=== PATIENT | female | born 1955 | race Caucasian/White ===

== ENCOUNTER → 2016-12-14 | Outpatient (CLI) | payer MEDICARE, OTHER ==
[~2016-12-14] MED LIST: ALPR1TAB2 PO; HYDR-2868 PO; HYDR-965 PO; LORA2TAB89 PO; MELA1TAB6 PO; MELO7.5T5 PO; METH-38 PO; METH10TA2 PO; PROM25AM6 IJ; VALR1TAB PO; ZOLP10TA PO
--- NOTE | 2016-12-14 14:55 | PAIN ---
DATE OF SERVICE: 12/14/2016 DIAGNOSES: 1. Migraine headaches. 2. Cervicalgia. 3. Myofascial pain. HISTORY OF PRESENT ILLNESS: The patient is a 61-year-old female who returns for followup status post medication management with both methadone and hydrocodone, also Robaxin for muscle relaxation. The patient also takes Demerol and Phenergan injection at her local hospital once a month through a Port-A-Cath that she has for significant migraine headaches. We have been coordinating that with her primary physician in her local area of [place], [place]. The patient reports she is otherwise doing fairly well, has a 2 on a scale of 10 with a headache and 8 on a scale of 10 in her low back as she has been increasing her activity recently with a constant pain that varies in intensity with activity, was about an 8 on a scale of 10. The patient reports her headaches are fairly well controlled. Again, she has headaches every day, but when they get significantly compounding and worse, she does present to the Emergency Department for the Port-A-Cath IV injection of Demerol and Phenergan. The patient reports no new motor or sensory deficits, no new bowel or bladder incontinence, or other complaints. The patient did have a urine drug screen obtained today and has had appropriate UDS screens to date and has appropriate K-TRACS reporting today as well. PHYSICAL EXAMINATION: VITAL SIGNS: The patient's blood pressure 171/104, pulse 103, respirations 20, and temperature 98.7 degrees Fahrenheit. Height is 5 feet 10 inches and weighs 256 pounds. GENERAL: The patient is awake, alert, oriented, appropriate, very pleasant demeanor. HEENT: Head shows normocephalic, atraumatic. Extraocular movements are intact, symmetrical. Oral cavity, mucous membranes moist and pink. Dentition is intact. NECK: Shows anterior throat supple without palpable lymphadenopathy noted. Swallow reflex is symmetrical. CHEST: Shows normal on inspection. Breath sounds are clear to auscultation bilaterally. HEART: Shows S1 and S2 clear. ABDOMEN: Obese, soft, nontender, nondistended. No palpable organomegaly is noted. No rebound or guarding demonstrated. BACK: Shows spine grossly in midline. Slight exaggeration of thoracic kyphosis and mild flattening of lumbar lordotic curvature. Lumbar paraspinous muscle shows some moderate tenderness with palpation, but only diffusely in the lumbar distribution, but is fairly tender bilaterally. No difficulty with rotation, right and left lateral 10 degrees and extension 10 degrees, forward flexion 45 degrees without significant pain reported. Options were discussed with the patient. The patient's old chart was reviewed as her current medication regimen and updated. Current review of systems is updated today as well. We will refill the patient's methadone and hydrocodone as well as Robaxin and note for her Demerol injections for her once monthly when headaches are severe enough. The patient again will have urinalysis obtained today and has again had appropriate UDS to date and had appropriate K-TRACS reporting to date. The patient was encouraged to increase her activity as tolerated and to do weight loss activities as well, which may help with her low back pain also. We discussed this in some detail with her and her son who accompanied her to visit today. She will look into some dietary help in her local region as well. The patient will follow up in approximately 90 days or sooner if necessary. She was given a 90-day prescription with instructions, side effects to be aware of with the medication as well. ANGELINE CLEMENT MD DR: JOSE F/keshia JOB#: [id number] / [id number]
== END | disposition home or self-care (01) ==
LOC: PNCL 12:47
PROVIDERS: ATTEND Anesthesiology
DX: G43.009 Migraine without aura, not intractable, without status migrainosus (principal); M54.2 Cervicalgia; M79.1 Myalgia
CPT/HCPCS: G0463

== ENCOUNTER → 2017-03-08 | Outpatient (CLI) | payer MEDICARE, OTHER ==
[~2017-03-08] MED LIST changes: +CHOL500016 PO
--- NOTE | 2017-03-08 16:09 | PAIN ---
DATE OF SERVICE: 03/08/2017 PROGRESS NOTE FOR PAIN CLINIC DIAGNOSES: 1. Migraine headaches. 2. Cervicalgia. 3. Myofascial pain. HISTORY OF PRESENT ILLNESS: The patient is a 61-year-old female who returns for followup status post medication management with both methadone and hydrocodone. The patient reports she has been doing very well with this. She also has intermittent Demerol shot once a month at a local hospital near her in [place], [place]. The patient reports she is doing very well with this. She is on a very stable regimen. She still some significant pain, but is fairly well controlled with medication regimen, still some pain in the base of the neck and the upper, middle and lower back, but the headaches have been somewhat better and well controlled with the current medication regimen and Demerol injections. The patient reports also pain in the base of the neck and shoulders as well as upper back pain, which is well controlled with oral medications as well. The patient reports no side effects to the medications and she has had increased activity lately. It has been warmer outside and she has been trying to be more active ____ her pain to a moderate extent. The patient reports her headache is a 10 on a scale of 10 and her least pain is 7 on a scale of 10 in the mid back and neck. The patient reports that the pain is tingling, burning, aching, sharp, shooting, constant and radiating pain in the base of the neck and shoulders as well as the upper extremities. We discussed interventional techniques with the patient, but she is adamantly against. She states she had these in the past without significant improvement. PHYSICAL EXAMINATION: VITAL SIGNS: Today, the patient's blood pressure is 125/96, pulse 81, respirations 20, temperature 98.7 degrees Fahrenheit, height is 5 feet 10 inches, weighs 265 pounds. GENERAL: The patient is awake, alert, oriented, appropriate, very pleasant demeanor. HEENT: Head shows normocephalic, atraumatic. Extraocular movements are intact, symmetrical. Oral cavity, mucous membranes are moist and pink. Dentition is intact. NECK: Shows anterior throat supple. CHEST: Shows normal on inspection. Breath sounds are clear to auscultation bilaterally. HEART: Shows S1 and S2 clear. No murmurs auscultated. ABDOMEN: Obese, soft, nontender, nondistended. No palpable organomegaly is noted. No rebound or guarding demonstrated. BACK: Shows spine grossly in the midline. Cervical paraspinous muscle shows some moderate tenderness to palpation, but only in the low cervical distribution without radiation, without atrophy, hypertrophy. The patient has full rotational motion of cervical spine, both laterally as well as extension and flexion without difficulty. BACK: Shows slight exaggerated thoracic kyphosis and mild flattening of lumbar lordotic curvature. Lumbar paraspinous muscle shows diffuse tenderness throughout the upper, middle and lower distribution of paraspinous muscles bilaterally without radiation. EXTREMITIES: The patient's extremities, upper extremity deep tendon reflexes are 2+, lower extremities are 1+. 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 Lower extremities show 4/5 with dorsiflexion, extension, but symmetrical, quadriceps and hamstring flexion are 4/5 and equal bilaterally as well. PLAN: Options were discussed with the patient and the patient's old chart was reviewed as her current medication regimen updated. Current review of systems updated today as well. We will refill the patient's methadone as well as hydrocodone with instructions, side effects to be aware of with the medications. The patient had appropriate K-TRACS reporting as well as appropriate urinalysis today. We also counseled the patient she has to increase activity as tolerated. We have discussed the interventional techniques for the cervical radiculopathy; however, the patient is adamantly against this. Once again, we will have her return to clinic in approximately 3 months. We will give her 90-day supply for medications with instructions, side effects to be aware of with each of these medications and she will follow up as scheduled. ANGELINE CLEMENT MD DR: JOSE F/keshia JOB#: [id number] / [id number]
== END | disposition home or self-care (01) ==
LOC: PNCL 11:35
PROVIDERS: ATTEND Anesthesiology
DX: G43.909 Migraine, unspecified, not intractable, without status migrainosus (principal); M54.2 Cervicalgia; M79.1 Myalgia
CPT/HCPCS: G0463

== ENCOUNTER → 2017-06-07 | Outpatient (CLI) | payer MEDICARE, OTHER ==
--- NOTE | 2017-06-07 15:09 | PAIN ---
DATE OF SERVICE: 06/07/2017 DATE OF SERVICE: 06/07/2017 DIAGNOSES: 1. Migraine headaches. 2. Cervicalgia. 3. Myofascial pain. HISTORY OF PRESENT ILLNESS: The patient is a 62-year-old female who returns for followup status post medication management with both methadone and hydrocodone for breakthrough pain. The patient reports she is doing very well on very stable regimen. No new motor or sensory deficits, recently had left knee surgery with arthroscopic surgery about 2 weeks ago and is doing well with this. The patient reports also that she needs surgery on her right leg and we asked her to call us prior to the surgery once it is scheduled in the next few months to cover her narcotic needs for postoperative pain issues. She does have a contract with our office. The patient agrees. The patient reports the pain now is mostly in the back and hips, but also in the upper back, neck and shoulders, also with some headaches, which are fairly well controlled. She continues to get Demerol injections once a month in her local hospital near [place], [place]. The patient reports the pain as 10 on a scale of 10 at its worst, it is an average of 10 over the last week and it is 7 on a scale of 10 today. The patient reports no new motor or sensory deficits, no new complaints or other findings. PAST MEDICAL HISTORY: Significant for hypertension, dizziness, arthritis, UTIs, kidney stones. PAST SURGICAL HISTORY: Include cholecystectomy, hysterectomy, x2, sinus surgeries, Port-A-Cath x2. CURRENT MEDICATIONS: Reviewed and updated in the patient's chart. REVIEW OF SYSTEMS: Reviewed and updated in the patient's chart, which are negative except for those items mentioned in history of present illness. PHYSICAL EXAMINATION: VITAL SIGNS: Today, the patient's blood pressure is 140/96, pulse 81, respirations 18, temperature 98.0 degrees Fahrenheit. Height is 5 feet 10 inches, weighs 263 pounds. GENERAL: The patient is awake, alert, oriented, appropriate, very pleasant demeanor. HEENT: Head shows normocephalic, atraumatic. Extraocular movements are intact, symmetrical. Patient wears eyeglasses. Oral cavity, mucous membranes are moist and pink. Dentition is intact. NECK: Shows anterior throat supple without palpable lymphadenopathy noted. Swallow reflex is symmetrical. CHEST: Shows normal on inspection. Breath sounds are clear to auscultation bilaterally. HEART: Shows S1 and S2 clear. No murmurs are auscultated. ABDOMEN: Obese, soft, nontender, nondistended. No palpable organomegaly is noted. No rebound or guarding demonstrated. BACK: The patient's back shows grossly midline spine with normal-appearing cervical lordotic curvature, thoracic kyphotic curvature, and lumbar lordotic curvature. No previous bruises, lesions, rashes or scars are noted. Cervical paraspinous musculature shows some tenderness to palpation, but only in the inferior aspect, but only moderate without atrophy, hypertrophy or radiation. The patient shows good rotational motion of cervical spine, both laterally as well as extension and flexion without significant pain reported. The patient's thoracic spine shows normal or slightly exaggerated thoracic kyphosis, mild flattening of lumbar lordotic curvature. Lumbar paraspinous musculature shows some mild tenderness throughout the upper, middle and lower distribution again diffusely without radiation ____ in to the low thoracic distribution as well, but without trigger points, asymmetry or radiation as well. The patient does show good rotational motion of lumbar spine, both laterally as well as extension and flexion without difficulty. EXTREMITIES: The patient's lower extremities show deep tendon reflexes at 1+ in the patellar and tendo calcaneus tendons. The patient is wearing a knee brace on the left side, soft knee brace wrap style. Upper extremities showed deep tendon reflexes 2+ in the biceps and triceps tendons. Motor exam is strong with transformation lead strength rated at 5/5 as is biceps and triceps flexion and symmetrical. Peripheral pulses are 2+ radial, 1+ posterior tibial bilaterally. No peripheral edema is noted. PLAN: Options were discussed with the patient and the patient's old chart was reviewed as her current medication list updated and review of systems updated as noted. We will refill the patient's methadone as well as hydrocodone with a 90-day supply. The patient is given instruction as well as side effects to be aware with medication. Also, we will have patient contact the office prior to her right-sided knee surgery, which is not scheduled yet within the next few months to cover postoperative pain for the patient as well. The patient was counseled as to activity levels as well as medication regimen. Hydration was stressed as well as diet and exercise discussed as much as her orthopedist will allow her with her recent knee surgery. The patient understands and agrees and will followup as scheduled. ANGELINE CLEMENT MD DR: JOSE F/keshia JOB#: [id number] / [id number]
== END | disposition home or self-care (01) ==
LOC: PNCL 10:16
PROVIDERS: ATTEND Anesthesiology
DX: G43.909 Migraine, unspecified, not intractable, without status migrainosus (principal); M54.2 Cervicalgia; I10 Essential (primary) hypertension; M79.1 Myalgia; Z87.442 Personal history of urinary calculi
CPT/HCPCS: G0463

== ENCOUNTER → 2017-08-30 | Outpatient (CLI) | payer MEDICARE, OTHER ==
--- NOTE | 2017-08-30 13:52 | PAIN ---
DATE OF SERVICE: 08/30/2017 DIAGNOSES: 1. Migraine headaches. 2. Cervicalgia. 3. Myofascial pain. HISTORY OF PRESENT ILLNESS: The patient is a 62-year-old female who returns for followup status post medication management with both methadone and hydrocodone as well as Robaxin for muscle relaxation. The patient has been on very stable regimen with good pain control and no side effects. The patient reports about 80% improvement overall of her pain, mostly in the neck and shoulders, upper mid back as well and some bilateral knee pain and some foot pain recently, history of headaches, may be a migraine headache history where she is obtaining intravenous access as she does have a Port-A-Cath of Dilaudid and Phenergan once a month on average at her local hospital, which is near [place], [place]. The patient reports she is doing very well with this, and the Dilaudid and Phenergan seemed to decrease the headache very significantly and actually has been working better than the Demerol she had been on before this IV. The patient reports no new motor or sensory deficits, no new bowel or bladder incontinence or other complaints, but still significant pain and migraines where she is taking injection about once a month at her local hospital with cooperation through her primary physician close to home. The patient reports the pain now is aching, sharp, shooting, stabbing, cramping, burning, tingling, constant, radiating, becoming more severe in the shoulders and upper neck, but very manageable with the medication. Without medication, the pain is about a 10, with it, is about a 4, on average about 8. Describes at least over the last week at about of 7 and is a 4 today. The patient reports no new motor or sensory deficits, no new changes. PHYSICAL EXAMINATION: VITAL SIGNS: Today, the patient's blood pressure is 155/93, pulse 85, respirations 18, temperature is 98.3 degrees Fahrenheit, height 5 feet 8 inches, weight is 255 pounds. GENERAL: The patient is awake, alert, oriented, appropriate, very pleasant demeanor. The patient is accompanied by her son. HEENT: Shows normocephalic, atraumatic. Eyes: Extraocular movements are intact and symmetrical. Oral cavity: Mucous membranes moist and pink. Dentition is intact. NECK: Shows anterior throat supple without palpable lymphadenopathy noted. Swallow reflex symmetrical. CHEST: Shows normal on inspection. Breath sounds clear to auscultation bilaterally. HEART: Shows S1, S2 clear. No murmurs auscultated. ABDOMEN: Soft, nontender, nondistended. No palpable organomegaly. No rebound or guarding demonstrated. BACK: The patient's back shows spine grossly in midline. Slight exaggeration of thoracic kyphosis, some minor flattening of lumbar lordotic curvature. No bruises, lesions, rashes or scars are noted. The patient has some moderate tenderness with palpation in the inferior aspect of the cervical paraspinous muscles into the superior medial and lateral trapezius, but is present bilaterally without radiation, without trigger points. The patient has good rotational motion of cervical spine, both laterally as well as extension and flexion without significant difficulty. The patient's low back shows moderate tenderness with palpation, but symmetrical on inspection with paraspinous musculature. The patient shows good rotational motion both laterally as well as extension and flexion without difficulty in the lumbar spine as well. EXTREMITIES: Show upper extremity deep tendon reflexes 2+ in the biceps and triceps tendons. Lower extremities show deep tendon reflexes 1+ in the patellar tendons and are equal bilaterally. 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 Lower extremities are approximately 4/5 dorsiflexion, extension, quadriceps and hamstrings, but are symmetrical and equal. Peripheral pulses are 2+ radial distribution and 1+ posterior tibia. No peripheral edema is noted in any of the extremities, upper or lower bilaterally. Options were discussed with the patient. The patient's old chart was reviewed. Her current medication regimen updated. Current review of systems updated today as well, and we will refill the patient's methadone as well as hydrocodone with instructions and side effects to be aware of. Also, Robaxin with instructions, side effects to be aware of discussed. The patient will have a new note for her local physician and ER for the Dilaudid, Phenergan once monthly injection on a p.r.n. basis for intractable migraine headache as she is responding quite well to this. The patient has had appropriate K-TRACS reporting as well as appropriate urinalysis to date. We will have urinalysis today as well as a routine screening. The patient will follow up in approximately 90 days', was given 90 day prescription with instructions once again with the medication and return to clinic sooner if necessary as well. ANGELINE CLEMENT MD DR: JOSE F/keshia JOB#: [id number] / [id number]
== END | disposition home or self-care (01) ==
LOC: PNCL 10:34
PROVIDERS: ATTEND Anesthesiology
DX: G43.909 Migraine, unspecified, not intractable, without status migrainosus (principal); M54.2 Cervicalgia; M79.1 Myalgia
CPT/HCPCS: G0463

== ENCOUNTER → 2017-11-22 | Outpatient (CLI) | payer MEDICARE, OTHER | END | disposition home or self-care (01) | LOC: PNCL 11:15 | DX: G43.909 Migraine, unspecified, not intractable, without status migrainosus (principal); M54.2 Cervicalgia | CPT/HCPCS: G0463 ==

== ENCOUNTER → 2018-02-14 | Outpatient (CLI) | payer MEDICARE, OTHER | END | disposition home or self-care (01) | LOC: PNCL 11:21 | DX: G43.809 Other migraine, not intractable, without status migrainosus (principal) | CPT/HCPCS: G0463 ==

== ENCOUNTER → 2018-05-09 | Outpatient (CLI) | payer MEDICARE, OTHER ==
[~2018-05-09] MED LIST changes: +HYDR-2766 PO
--- NOTE | 2018-05-09 17:24 | PAIN ---
DATE OF SERVICE: 05/09/2018 PROGRESS NOTE FOR PAIN CLINIC DIAGNOSES: 1. Migraine headaches. 2. Cervicalgia. 3. Myofascial pain. HISTORY OF PRESENT ILLNESS: The patient is a 63-year-old female who returns for followup status post medication management with both methadone and hydrocodone. The patient is also receiving intravenous through her Port-A-Cath, Dilaudid and Phenergan once a month at her local physician's facility in [place], [place]. The patient reports she is doing very well with her current regimen, has been under less stress lately and has had decreased pain, has been trying to decrease her pain medications as best she can, still doing well without side effects. The patient is taking up to 3-4 hydrocodone a day, sometimes only once or twice during the day when she has better days. The patient reports she is sleeping better at night, but does awaken her from sleep about every 6 hours with pain in the base of the neck and shoulders as well as the upper back, mid back, low back, pain in the knees, left shoulder, especially in both the elbows. The patient reports her pain is a 10 on a scale of 10 at worst, 9 on average, 6 at its least and is a 6 today. The patient reports it is tingling, cramping, aching, sharp, shooting, radiating, severe, constant at times, worse with activity, worse with positions or sitting for prolonged periods as well as standing for more than about 15-20 minutes or walking. The patient reports no new motor or sensory deficits. No side effects with the medication. PHYSICAL EXAMINATION: VITAL SIGNS: The patient's blood pressure is 138/95, pulse 85, respirations 16, temperature 98.4 degrees Fahrenheit, weight is 238 pounds. GENERAL: The patient is awake, alert, oriented, appropriate, very pleasant demeanor. The patient is accompanied by her son. HEENT: Shows normocephalic, atraumatic. Extraocular movements are intact and symmetrical. Oral cavity: Mucous membranes are moist and pink. Dentition is intact. NECK: Shows anterior throat supple without palpable lymphadenopathy noted. Swallow reflex is symmetrical. CHEST: Shows normal on inspection. Breath sounds are clear to auscultation bilaterally. HEART: Shows S1, S2 clear. No murmurs auscultated. ABDOMEN: Obese, soft, nontender, nondistended. No palpable organomegaly is noted. No rebound or guarding demonstrated. BACK: Shows spine grossly in the midline. Normal appearing cervical lordotic curvature, slight increase in thoracic kyphosis, some minor flattening of lumbar lordotic curvature. Cervical spine shows good rotational motion, both laterally greater than 45 degrees, close to 90 degrees, right and left as well as full extension, full forward flexion without significant pain reported. Paraspinous musculature shows some moderate tenderness in the inferior aspect of the cervical paraspinous muscles, but only diffusely into the superior medial trapezius bilaterally, but only diffuse without trigger points, without radiation. Thoracic spine shows some moderate tenderness diffusely throughout the upper, middle and lower distribution of the paraspinous muscles lumbar distribution as well with upper, middle and lower distribution of the paraspinous muscles, diffusely tender bilaterally without radiation. No tenderness over the spinous processes, sacrum or sacroiliac regions. The patient shows good rotation of the lumbar spine, both laterally greater than 10 degrees right and left as well as extension greater than 10 degrees, forward flexion 45 degrees without increase in pain. EXTREMITIES: The patient's lower extremities show deep tendon reflexes 1+ in the patellar and tendo-calcaneus tendons. Motor exam is strong with dorsiflexion, extension, quadriceps and hamstring flexion, equal and symmetrical at approximately 4 on a scale of 5 strength, but symmetrical. Peripheral pulses are 1+ posterior tibia. No peripheral edema is noted bilaterally. Options were discussed with the patient. The patient's old chart was reviewed as her current medication regimen updated. Current review of systems updated today as well. We will refill the patient's methadone and oxycodone as well as Robaxin for a 90-day treatment. The patient has had appropriate K-TRACS reporting as well as appropriate urinalysis to date. We will obtain urinalysis today as well as routine screening. The patient was given instructions as well as side effects to be aware of with each of her medications and follow up in approximately 90 days or sooner if necessary. ANGELINE CLEMENT MD DR: JOSE F/keshia JOB#: [id number] / [id number]
== END | disposition home or self-care (01) ==
LOC: PNCL 11:06
PROVIDERS: ATTEND Anesthesiology
DX: G43.909 Migraine, unspecified, not intractable, without status migrainosus (principal); M40.294 Other kyphosis, thoracic region; M43.8X2 Other specified deforming dorsopathies, cervical region; M43.8X6 Other specified deforming dorsopathies, lumbar region; M79.1 Myalgia; I10 Essential (primary) hypertension; Z90.710 Acquired absence of both cervix and uterus
CPT/HCPCS: G0463

== ENCOUNTER → 2018-08-01 | Outpatient (CLI) | payer MEDICARE, OTHER ==
--- NOTE | 2018-08-01 20:50 | PAIN ---
DATE OF SERVICE: 08/01/2018 PROGRESS NOTE FOR PAIN CLINIC DIAGNOSES: 1. Migraine headaches. 2. Cervicalgia. 3. Myofascial pain. HISTORY OF PRESENT ILLNESS: The patient is a 63-year-old female who returns for followup status post medication management, last seen 05/09/2018. The patient has been doing very well with her medication regimen of methadone and hydrocodone. The patient reports she is doing very well and feels that she is, "I am happy." The patient reports the headaches are about the same, but she is doing well. She is also getting injections of Phenergan and Dilaudid at her local hospital near [place], [place] once a month, which do help as well through her Port-A-Cath, which was placed. The patient reports she would like the Dilaudid amount decreased from 3 mg to 2 mg in the injectables. We will write the orders for that as well. She feels that it was too strong for her last time she had this. The patient reports otherwise doing well. She relates that she is recently engaged and plans to be next February 2019. She is feeling good about her situation at this time. The patient reports her pain is about a 9-10 on scale its worst, 9 on average, 7 at its least and is a 7 today, aching, sharp, shooting, burning, cramping, stabbing, radiating, severe in the mid back, upper back, in the bilateral lower extremities and legs, neck and shoulder as well as the headaches as described. The patient reports no new motor or sensory deficits, no side effects of the medication. The patient reports it wakes her from sleep about every 4-5 hours, but generally, she sleeps fairly well. The patient reports no other changes. PHYSICAL EXAMINATION: VITAL SIGNS: The patient's blood pressure is 160/100, pulse 109, pulse 88, respirations 16, temperature 98.4 degrees Fahrenheit. Height is 5 feet 10 inches, weight is 234 pounds. GENERAL: The patient is awake, alert, oriented, appropriate, very pleasant demeanor. HEENT: Head is normocephalic, atraumatic. Extraocular movements intact and symmetrical. Oral cavity: Mucous membranes are moist and pink. Dentition is intact. NECK: Shows anterior throat supple without palpable lymphadenopathy noted. Swallow reflex symmetrical. CHEST: Shows normal with inspection. Breath sounds are clear to auscultation bilaterally. HEART: Shows S1, S2 clear. No murmurs auscultated. ABDOMEN: Soft, nontender, nondistended. No palpable organomegaly is noted. No rebound or guarding demonstrated. BACK: Shows spine grossly in the midline. Cervical paraspinous muscle shows symmetrical, but with palpation shows some moderate tenderness in the inferior aspect of the cervical paraspinous muscles without specific trigger points, without radiation. The patient has good rotational motion of the cervical spine both laterally as well as extension and flexion without significant pain reported. Thoracic paraspinous muscle shows thoracic kyphosis slightly increased, however, normal. Paraspinous muscles are moderately tender with palpation, but only diffusely. Lumbar paraspinous muscle shows again moderately tender with palpation, but symmetrical without atrophy, hypertrophy or radiation of pain. The patient has good rotational motion both laterally as well as extension and flexion without difficulty. No tenderness over the sacrum or sacroiliac regions over the spinous processes. EXTREMITIES: The patient's extremities show upper extremity deep tendon reflexes at 2+, lower extremities are 1+. Motor exam is strong with professional application designer strength rated 5/5 dorsiflexion, extension is 5/5 and equal as well. Peripheral pulses are 2+ radial, 1+ posterior tibial. No peripheral edema is noted in the upper or lower extremities. Options were discussed with the patient. The patient's old chart was reviewed, as her current medication regimen updated. Current review of systems updated today as well. We will refill the patient's methadone as well as hydrocodone for a 3-month period. The patient has had appropriate K-TRACS reporting as well as appropriate urinalysis to date. We will give her 30-day supply with instructions, side effects to be aware of with each of the medications. Also, we will change the standing order for her injectable medication to decrease the Dilaudid from 3 mg to 2 mg with Phenergan once a month p.r.n. intractable migraine headache. The patient will follow up in approximately 90 days or sooner as necessary. ANGELINE CLEMENT MD DR: JOSE F/keshia JOB#: [id number] / [id number]
== END | disposition home or self-care (01) ==
LOC: PNCL 10:47
PROVIDERS: ATTEND Anesthesiology
DX: G43.909 Migraine, unspecified, not intractable, without status migrainosus (principal); M54.2 Cervicalgia; M79.18 Myalgia, other site
CPT/HCPCS: G0463

== ENCOUNTER → 2018-12-24 | Outpatient (CLI) | payer MEDICARE, OTHER ==
[~2018-12-24] MED LIST changes: -HYDR-2766 PO; +HYDR-2769 PO; +HYDR-3165 PO; -HYDR-965 PO
--- NOTE | 2018-12-25 01:10 | PAIN ---
DATE OF SERVICE: 12/24/2018 DIAGNOSES: 1. Migraine headache. 2. Cervicalgia. 3. Myofascial pain. HISTORY OF PRESENT ILLNESS: The patient is a 63-year-old female who returns for followup status post medication management with both methadone and hydrocodone. The patient reports she was doing very well, has been on very stable regimen indeed for extended period of time. The patient reports that her headaches have been much less over the past few months. It has been about 90 days since we have seen her. She was taking injection of Dilaudid and Phenergan at her local hospital near [place], [place] through her Port-A-Cath, but has not needed this over the past month as her headaches have not been as severe. The patient reports there is still some significant pain in the low back and mid back, but doing much better overall. The patient reports she is doing well with her medications on a very stable regimen, has no significant side effects, of course the main complaint is the low mid back which the patient describes as an aching, sharp, shooting, tingling, stabbing, radiating, becoming constant at times, worse with walking, standing, changing positions, better with sitting or lying down, awakens her from sleep occasionally but not every night. The patient reports pain is 9 on a scale of 10 at its worst over the past week, 7 on average and 6 at its least and is 6 today. The patient reports no new motor or sensory deficits, no side effects of the medications. PHYSICAL EXAMINATION: VITAL SIGNS: The patient's blood pressure is 146/99, pulse 94, respirations 18, temperature 99.0 degrees Fahrenheit, height is 5 feet 10 inches and weight is 226 pounds. GENERAL: The patient is awake, alert, oriented, appropriate, very pleasant demeanor. The patient is accompanied by her son. HEENT: Shows normocephalic, atraumatic. Extraocular movements are intact and symmetrical. Oral cavity: Mucous membranes moist and pink. Dentition is intact. NECK: Shows anterior throat supple without palpable lymphadenopathy noted. Swallow reflex is symmetrical. CHEST: Shows normal with inspection. Breath sounds are clear to auscultation bilaterally. HEART: Shows S1, S2 clear. No murmurs auscultated. ABDOMEN: Soft, obese, nontender, nondistended. No palpable organomegaly is noted. No rebound or guarding demonstrated. BACK: Shows spine grossly in the midline. Normal-appearing thoracic kyphosis and mild flattening of lumbar lordotic curvature. Lumbar paraspinous muscle shows symmetrical on inspection, with palpation shows some moderate tenderness throughout the upper, middle, lower distribution of paraspinous muscles but without radiation. The patient has good rotational motion of lumbar spine with some mild tenderness with extension, but not with forward flexion, right or left lateral rotation greater than 10 degrees. EXTREMITIES: The patient's lower extremities show deep tendon reflexes 1+ in the patellar and tendo calcaneus tendons. Motor exam is strong with 5/5 dorsiflexion, extension, quadriceps and hamstring flexion. Peripheral pulses are 1+ posterior tibia. No peripheral edema is noted. Options were discussed with the patient. The patient's old chart was reviewed as was her current medication regimen updated. Current review of systems updated today as well. We will refill the patient's methadone as well as hydrocodone, also Phenergan and Robaxin. The patient was given instruction as well as side effects to be aware of each of the medications. The patient has had appropriate K-TRACS reporting as well as appropriate urinalysis to date. We will refill this for a 90-day period. The patient will also have urinalysis today as part of routine screening, was given instruction as well as side effects about each of the medication. We will follow up as scheduled. ANGELINE CLEMENT MD DR: JOSE F/keshia JOB#: [id number] / [id number]
== END | disposition home or self-care (01) ==
LOC: PNCL 10:21
PROVIDERS: ATTEND Anesthesiology
DX: G43.909 Migraine, unspecified, not intractable, without status migrainosus (principal); M54.2 Cervicalgia; M79.18 Myalgia, other site; M54.5 Low back pain
CPT/HCPCS: G0463

== ENCOUNTER → 2019-04-01 | Outpatient (CLI) | payer MEDICARE, OTHER ==
--- NOTE | 2019-04-01 12:54 | PAIN ---
DATE OF SERVICE: 04/01/2019 DIAGNOSES: 1. Migraine headaches. 2. Cervicalgia. 3. Myofascial pain. HISTORY OF PRESENT ILLNESS: The patient is a 64-year-old female who returns for followup status post medication management with both methadone and hydrocodone. The patient reports she has been doing very well, has been on very stable regimen without significant side effects, also taking Robaxin and Phenergan, which helps her headaches and nausea. The patient does have a standing order with her local hospital near [place], [place] for intravenous Dilaudid and Phenergan injection once a month for migraine headaches, which she has used through a Port-A-Cath that she has. The patient has not had one in over a month. She reports she has been in [place] most of the last month with her fiance and traveling back and forth, which has caused some increased pain in the neck and shoulders, also some stimulation of headache when she was in [place] and we discussed this in the past. She has taken immediate release morphine sulfate, which has decreased the headache significantly and we will prescribe this for her to take one per month at the maximum amount as well. The patient reports otherwise doing fairly well on her maintenance medications, no new side effects or other complaints, still some headaches, neck and shoulder pain as well as some myofascial pain and knee pain. The patient reports the pain is 8 on a scale of 10 at its worst in the past week, 8 on average, 6 at its least and is an 8 today. The patient reports it is a sharp, tight, shooting, tingling, burning, radiating, constant at times, worse with activity, standing, walking, changing positions and traveling. The patient reports she does awaken from her sleep occasionally, mainly with the pain in the neck, but not generally the headaches. The patient reports no new motor or sensory deficits, no new changes. PHYSICAL EXAMINATION: VITAL SIGNS: The patient's blood pressure 152/90, pulse 68, respirations 18, temperature is 98.7 degrees Fahrenheit. Height is 5 feet 10 inches and weight is 227 pounds. GENERAL: The patient is awake, alert, oriented, appropriate, very pleasant demeanor. The patient is accompanied by her son. HEENT: Head shows normocephalic, atraumatic. Extraocular muscles are intact and symmetrical. Oral cavity, mucous membranes are moist and pink. Dentition is intact. NECK: Shows anterior throat supple without palpable lymphadenopathy noted. Swallow reflex is symmetrical. CHEST: Shows normal on inspection. Breath sounds clear to auscultation bilaterally. HEART: Shows S1, S2 clear. No murmurs auscultated. ABDOMEN: Obese, soft, nontender, nondistended. No palpable organomegaly is noted. No rebound or guarding demonstrated. BACK: Shows spine grossly in the midline. Normal appearing thoracic kyphosis and lumbar lordotic curvature. Lumbar paraspinous musculature shows symmetrical on inspection and palpation shows some moderate tenderness diffusely bilaterally as is thoracic paraspinous musculature mildly tender also but symmetrical. Cervical paraspinous musculature shows symmetrical with some mild tenderness as well throughout the upper, middle and lower distribution of paraspinous muscles. The patient has good rotational motion of cervical spine, both laterally as well as extension and flexion without significant increase in pain. EXTREMITIES: The patient's upper extremities show deep tendon reflexes 2+ in the biceps and triceps tendons. Pretzel Twister strength is strong with 5/5 small order cutter, bicep and tricep flexion, which are symmetrical. Peripheral pulses are 2+ radial distribution. No peripheral edema is noted. Options were discussed with the patient. The patient's old chart was reviewed as her current medication regimen and updated. Current review of systems is updated today as well and the patient has had appropriate K-TRACS reporting as well as appropriate urinalysis to date. We will refill the patient's medication for a 90-day prescription with instructions, side effects to be aware of with each of the medications. The patient is also given a note for the Port-A-Cath injections for migraine headaches for her local physician in [place], [place] and also add morphine 15 mg immediate release one tablet per month maximum for migraine headache when she is away from home and this has done well with her in the past. Again, the patient was cautioned as to the medications as well as side effects to be aware of and will follow up in approximately 90 days or sooner as necessary. ANGELINE CLEMENT MD DR: JOSE F/keshia JOB#: [id number] / [id number]
== END | disposition home or self-care (01) ==
LOC: PNCL 10:37
PROVIDERS: ATTEND Anesthesiology
DX: M54.2 Cervicalgia (principal); M79.18 Myalgia, other site; G43.909 Migraine, unspecified, not intractable, without status migrainosus; Z79.891 Long term (current) use of opiate analgesic
CPT/HCPCS: G0463

== ENCOUNTER → 2019-07-02 | Outpatient (CLI) | payer MEDICARE, OTHER ==
--- NOTE | 2019-07-02 13:12 | PAIN ---
DATE OF SERVICE: 07/02/2019 PROGRESS NOTE FOR PAIN CLINIC DIAGNOSES: 1. Migraine headaches. 2. Cervicalgia. 3. Myofascial pain. HISTORY OF PRESENT ILLNESS: The patient is a 64-year-old female who returns for followup status post medication management with both methadone and hydrocodone. The patient also has Dilaudid injection via her Port-A-Cath that she takes once a month for migraine headaches and reports she has not needed this frequently as her headaches have been better. She is also taking 15 mg morphine cut into 4th and taking 1/4th of a pill when she needs for the headache, which has been working better for her. The patient reports much less intensity of the migraine headaches, much less frequency. Still when they are present, they are very severe. The patient reports the pain in the last week has been a 9 on a scale of 10 at its worst, 7 on average, 6 at its least and is a 6 today. The patient reports that the pain can be aching, sharp, shooting in the head and the base of the neck and shoulders as well as under the mid low back, burning, cramping, radiating, severe at times. The patient reports no new motor or sensory deficit. It generally does not awaken her from sleep. She feels that she is doing quite well with about 80% improvement with the medications by her estimate without specifics or significant side effects, occasional constipation, which has been taken care with prune juice and bran as well as increased hydration. PHYSICAL EXAMINATION: VITAL SIGNS: The patient's blood pressure is 146/92, pulse 68, respirations 16, temperature 98.6 degrees Fahrenheit, weight is 228 pounds. GENERAL: The patient is awake, alert, oriented, appropriate, very pleasant demeanor. The patient is accompanied by her son. HEENT: Shows normocephalic, atraumatic. Extraocular movements are intact and symmetrical. Oral cavity: Mucous membranes moist and pink. Dentition is intact. NECK: Shows anterior throat supple without palpable lymphadenopathy noted. Swallow reflex symmetrical. CHEST: Shows normal on inspection. Breath sounds clear to auscultation bilaterally. HEART: Shows S1, S2 clear. No murmurs auscultated. ABDOMEN: Soft, nontender, nondistended. No palpable organomegaly is noted. No rebound or guarding demonstrated. BACK: Shows spine grossly in the midline. Normal appearing thoracic kyphosis and lumbar lordotic curvature. The patient's neck shows a normal cervical lordotic curvature. Paraspinous muscle shows symmetrical on inspection throughout the cervical, thoracic and lumbar distributions. With palpation, there is some mild tenderness in the base of the cervical paraspinous musculature as well as the mid and low thoracic and lower lumbar distribution, but only diffusely without radiation. The patient has good rotational motion of both the cervical spine, thoracic and lumbar spines without significant difficulty with extension, flexion, right and left lateral rotation. EXTREMITIES: The patient's upper extremities show deep tendon reflexes 2+ in the biceps, triceps tendons. Motor exam is strong with tissue packer strength rated at 5/5 as is bicep and tricep flexion. Peripheral pulses are 2+ in the radial distribution. Lower extremities show deep tendon reflexes at 1+ patellar and tendo calcaneus tendons. Motor exam is strong with 5/5 dorsiflexion, extension, quadriceps and hamstring flexion. Peripheral pulses are 1+ posterior tibial. Options were discussed with the patient. The patient's old chart was reviewed as her current medication regimen updated. Current review of systems updated today as well. We will refill the patient's medication for a 90-day period. The patient has had appropriate K-TRACS reporting as well as appropriate urinalysis to date. We will renew the patient's narcotic contract today as well. The patient was given a 90-day prescription with instructions and side effects to be aware of each of the medications. Also, note for her local ER for a Port-A-Cath use with her migraine regimen of Phenergan and hydromorphone. The patient will follow up in approximately 90 days or sooner if necessary. ANGELINE CLEMENT MD DR: JOSE F/keshia JOB#: [id number] / [id number]
== END | disposition home or self-care (01) ==
LOC: PNCL 10:33
PROVIDERS: ATTEND Anesthesiology
DX: G43.909 Migraine, unspecified, not intractable, without status migrainosus (principal); M54.2 Cervicalgia; M25.512 Pain in left shoulder; M25.511 Pain in right shoulder; M54.5 Low back pain
CPT/HCPCS: G0463

== ENCOUNTER → 2019-09-25 | Outpatient (CLI) | payer MEDICARE, OTHER ==
--- NOTE | 2019-09-25 13:53 | PAIN ---
DATE OF SERVICE: PROGRESS NOTE FOR PAIN CLINIC DIAGNOSES: 1. Migraine headache. 2. Cervicalgia. 3. Myofascial pain. HISTORY OF PRESENT ILLNESS: The patient is a 64-year-old female who returns for followup status post medication management with both methadone and oxycodone. The patient is also taking Robaxin and Phenergan for nausea. The patient reports she did very well with the combination of medications, has been on very stable regimen as well, had no specific side effects except for some nausea, now ____ Phenergan is taken care of this very well. The patient also has IV injection through a Port-A-Cath, which she has once a month with Dilaudid and Phenergan for intractable migraine headache as well. She reports that she has been doing this about once a month, but not every month and it has been working well for her also. We also prescribed 15 mg morphine sulfate immediate release 12 tablets to use once a month for a year and will renew that as well today. The patient reports no side effects with the medications. She is doing very well and on stable regimen currently. The patient reports the pain is a 9 on a scale of 10, at its worst, 9 on average, 7 at its least and is a 7 today. The patient reports it is aching, sharp, shooting, tingling, burning, radiating, constant in the back, upper neck, mid back, low back, bilateral shoulders, neck and also migraine headaches had some shooting and constant at times when they occur. The patient reports no new motor or sensory deficits, no new changes. She has been walking more with greater ease and comfort, but still has significant pain. It awakens her from sleep about every 6 hours, which generally not more frequently than that. The patient reports no new motor or sensory deficits, no new bowel or bladder incontinence or other complaints. Reports her pain has decreased by about 80% overall with the medication. PHYSICAL EXAMINATION: VITAL SIGNS: Her blood pressure is 137/96, pulse 74, respirations are 18, temperature 98.6 degrees Fahrenheit, height is 5 feet 10 inches, weight is 230 pounds. GENERAL: The patient is awake, alert, oriented, appropriate, very pleasant demeanor. The patient is accompanied by her son. HEENT: Shows normocephalic, atraumatic. Extraocular movements are intact and symmetrical. Oral cavity: Mucous membranes moist and pink. Dentition is intact. NECK: Shows anterior throat supple without palpable lymphadenopathy noted. Swallow reflex symmetrical. CHEST: Shows normal on inspection. Breath sounds are clear bilaterally. HEART: Shows S1, S2 clear. ABDOMEN: Obese but soft, nontender, nondistended. No palpable organomegaly is noted. BACK: Shows spine grossly in the midline. Normal appearing cervical lordotic curvature, minor increase in thoracic kyphotic curvature, some minor flattening of lumbar lordotic curvature. Paraspinous muscle shows symmetrical on inspection, with the cervical distribution shows some moderate tenderness diffusely bilaterally throughout the upper, middle and lower distribution of paraspinous muscles, but only diffusely without significant radiation. The patient does show good rotational motion of cervical spine, slightly guarded, right and left, but without significant limitation. Good extension, good forward flexion without significant pain reported. The patient's thoracic paraspinous muscle shows symmetrical, very firm with some tenderness throughout the upper, middle and lower distribution of paraspinous musculature bilaterally, but symmetrical right and left. No tenderness over the spinous processes and the lumbar distribution shows symmetrical paraspinous musculature as well. Palpation shows some moderate tenderness inferiorly in the low lumbar distribution only, but not in the upper, middle and shows no asymmetry, no atrophy, hypertrophy, no trigger points or radiation of pain. The patient does show good rotational motion of lumbar spine, both laterally greater than 10 degrees right and left as well as extension greater than 10 degrees, forward flexion 45 degrees without significant pain reported except for extension with a mild pain reported. EXTREMITIES: The patient's upper extremities show deep tendon reflexes 2+ in the biceps, triceps tendons. Motor exam is strong with saddle tree stitcher strength rated at 5/5 as is bicep and tricep flexion. 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 The patient's lower extremities show deep tendon reflexes at 1+ in patellar and tendo calcaneus tendons. Motor exam is strong with 5/5 dorsiflexion, extension, quadriceps and hamstring flexion and 5/5 saddle tree stitcher strength, bicep and tricep flexion. Peripheral pulses are 2+ radial, 1+ posterior tibia. No peripheral edema is noted in the upper or lower extremities. Options were discussed with the patient. The patient's old chart was reviewed. Her current medication regimen updated. Current review of systems updated today as well. We will refill the patient's medication, both methadone, also oxycodone, MSIR for significant headache Phenergan and Robaxin. Also, refill the patient's orders for intravenous once monthly, Dilaudid, Phenergan at her local emergency room near [place], [place] as she has had this in the past and we will renew this for her as well and she does need this about once a month on average. Again, the patient was given instruction as well as side effects to be aware of with all the medications. She has had appropriate K-TRACS reporting as well as appropriate urinalysis to date. We have urinalysis taken today as first part of routine screening as well as renew the patient's narcotic contract. The patient was given a copy of this as well. We will follow up in approximately 90 days or sooner if necessary. ANGELINE CLEMENT MD DR: JOSE F/keshia JOB#: [id number] / [id number]
== END | disposition home or self-care (01) ==
LOC: PNCL 10:24
PROVIDERS: ATTEND Anesthesiology
DX: G43.909 Migraine, unspecified, not intractable, without status migrainosus (principal); M79.18 Myalgia, other site; M54.2 Cervicalgia
CPT/HCPCS: G0463

== ENCOUNTER → 2020-08-05 | Outpatient (CLI) | payer MEDICARE, OTHER ==
--- NOTE | 2020-08-05 15:07 | PDOC ---
Progress Note - Pain Clinic Date of Service: DOS: DATE: 08/05/20 TIME: 15:02 Diagnosis: Dx: Myofascial pain Migraine headaches Cervicalgia History or Present Illness: HPI: 65-year-old female returns follow-up status post medication management with methadone and hydrocodone patient reports he been doing very well been a very stable regimen and indeed has been on very stable regimen for several years now tolerating the medications very well without any significant side effects. Patient reports occasional constipation but is taking care with [id number] laxatives and increased hydration. Patient reports no new motor or sensory deficits or other complaints she did have an incident where her dog pulled her with his leash and she fell on her left side with some pain in her left knee and hip otherwise doing fairly well. Patient ports he has significant pain in the shoulders upper back mid back low back and the left leg as well after her fall. Patient reports her pain is a 9 on scale 10 is worse over the past week [address] and a 5 at its least is an 8 today. Describes as burning and stabbing radiating constant the hip is shooting and tight as well but mostly aching in the back and shoulders. Patient reports it does not awaken her from sleep at night she sleeps comfortably reports overall about a 80% improvement with the pain with her medications again without significant side effects. She reports no new motor or sensory deficits no new bowel or bladder incontinence or other complaints. Patient reports she is moving to [facility] and will be residing there permanently and has primary care physician lined up as well as a pain specialist. I did inform her that we will transfer medical records as she desires. Physical Exam: VS: Blood pressure is 183/124 pulse 87 respirations 20 temperature 90.3 F height is 5 feet 10 inches weight is 244 pounds PE: PHYSICAL EXAMINATION: GENERAL: The patient is awake, alert, oriented, appropriate, very pleasant demeanor HEENT: Shows normocephalic, atraumatic. Extraocular movements are intact and symmetrical. Oral cavity: Mucous membranes moist and pink. Dentition is intact. NECK: Shows anterior throat supple without palpable lymphadenopathy noted. Swallow reflex symmetrical. CHEST: Shows normal on inspection. Breath sounds are distant but clear bilaterally, no rales rhonchi wheezes auscultated. HEART: Shows S1, S2 clear. No murmurs auscultated. ABDOMEN: Soft, nontender, nondistended, obese. No palpable organomegaly is noted. No rebound or guarding demonstrated. BACK: Shows spine grossly in the midline. Normal-appearing cervical lordotic curvature. Cervical spine shows full rotation motion both laterally as well as extension flexion without significant difficulty or pain reported. There is slightly increased thoracic kyphosis, some minor flattening of the lumbar lordotic curvature. Lumbar paraspinous muscles show symmetrical on inspection, on palpation shows some moderate tenderness diffusely throughout the upper, mi ddle and lower distribution of the paraspinous muscles bilaterally and also into the lower thoracic paraspinous musculature, firm and tender, but without specific trigger points, without radiation of pain. The patient has good rotational motion of the lumbar spine, both laterally as well as extension and flexion without significant difficulty. No tenderness over the spinous proce sses, sacrum or sacroiliac regions. EXTREMITIES: Lower extremities show deep tendon reflexes 1+ in the patellar and tendo calcaneus tendons. Motor exam is 4 on a scale of 5 with right dorsiflexion, extension, quadriceps and hamstring flexion and 4/5 on the left. Peripheral pulses are 1+ posterior tibial. 1+ peripheral edema is noted bilaterally, in the ankles and to approximately one half the distance to the knee on the anterior tibia, bilaterally. Lower extremities are warm and dry to touch, equal in color and appearance. SKIN: Shows warm and dry, good turgor. No edema. No sores, rashes or bruising throughout. Procedure: Procedure: Options were discussed with the patient. Patient's old chart was reviewed as her current medication regimen updated current review of systems updated today as well. We will refill patient's methadone as well as oxycodone also Phenergan and Robaxin with instructions and side effects beware discussed with each of the medications. These be refilled for a 90-day. Patient had appropriate [facility] [facility] reporting as well as appropriate urinalyses to date. We will have urinalysis done today as routine screening as well. Patient will follow up with us in 90 days or sooner if necessary. Again patient planning to reside soon in [place] and we will have medical records transferred there per her request. If patient establishes medical care in [place] prior to the 90-day. We will forward that information to her new physicians as well. Medication Injected: Med Injected: None Condition at Discharge: Condition at Discharge: Condition at discharge is stable. ANGELINE CLEMENT MD Aug 05, 2020 15:07
== END | disposition home or self-care (01) ==
LOC: PNCL 13:49
PROVIDERS: ATTEND Anesthesiology
DX: M79.18 Myalgia, other site (principal); G43.909 Migraine, unspecified, not intractable, without status migrainosus; M54.2 Cervicalgia; Z79.899 Other long term (current) drug therapy; Z88.8 Allergy status to other drugs, medicaments and biological substances; Z88.1 Allergy status to other antibiotic agents
CPT/HCPCS: G0463